=== PATIENT | female | born 1990 | race American Indian/Alaskan Native ===

== ENCOUNTER 2016-10-21 21:37 | Emergency (ER) | payer MEDICAID ==
[2016-10-21 23:09] LABS: Alanine Aminotransferase 9 units/L (7-56); Albumin 3.9 g/dL (3.9-5); Alkaline Phosphatase 56 units/L (35-129); Anion Gap 18 mmol/L; Blood Urea Nitrogen 14 mg/dL (7-17); Carbon Dioxide 24 mmol/L (22-30); Glucose 91 mg/dL (65-100); Lipase 18 units/L (13-60); Potassium 3.6 mmol/L (3.6-5.0); Sodium 139 mmol/L (137-145); Total Protein 7.7 g/dL (6.3-8.2)
[2016-10-21 23:17] LABS: Basophils % (Auto) 0.1 % (0.0-1.8); Eosinophils % (Auto) 2.1 % (0.0-4.3); Hematocrit 31.4 % (30.3-42.9); Hemoglobin 9.7 gm/dl (10.1-14.3); Mean Corpuscular HGB Conc 31 % (30-34); Mean Corpuscular Hemoglobin 22 pg (28-32); Mean Corpuscular Volume 71 fl (79-97); Platelet Count 247 K/mm3 (140-440); Red Blood Count 4.44 M/mm3 (3.65-5.03); Red Cell Distribution Width 17.9 % (13.2-15.2); White Blood Count 6.8 K/mm3 (4.5-11.0)
--- NOTE | 2016-10-21 23:57 | Ultrasound Report ---
FINAL REPORT EXAM: US OB TRANSVAGINAL HISTORY: pain, vaginal bleed COMPARISONS: None. FINDINGS: Transvaginal grayscale and color Doppler ultrasound evaluation of the pelvis No intrauterine . Mildly heterogeneous thickening of the endometrium up to 19 millimeters. Right adnexal thick walled cystic structure measures up to 16 millimeters. There is peripheral flow on color Doppler. Overall right ovarian measurements are 2.9 x 1.5 x 1.4 cm. Left ovary demonstrates normal size and echotexture measuring 2.3 x 1.3 x 1.4 cm. IMPRESSION: No intrauterine . Right adnexal thick walled cystic structure measuring up to 16 millimeters may represent ectopic or corpus luteum cyst. Short interval clinical and sonographic follow-up are recommended.
--- NOTE | 2016-10-22 | Ultrasound Report ---
FINAL REPORT EXAM: US OB \T\lt; = 14 WEEKS FETUS HISTORY: pain, vaginal bleed COMPARISONS: Transvaginal ultrasound of the same date FINDINGS: Transvaginal grayscale and color Doppler ultrasound evaluation of the pelvis No intrauterine identified. Mildly heterogeneous thickening of the endometrium up to 19 millimeters is better demonstrated on transvaginal imaging of the same date. The right and left ovary are not well visualized on transabdominal imaging. IMPRESSION: No intrauterine . Ovaries are not well visualized. Please see transvaginal ultrasound of the same date. In the setting of a positive test, differential diagnosis includes ectopic/ of unknown location. Gynecology consultation is recommended.
[2016-10-22 00:40] LABS: Bacteria,Urine 3+ /HPF (Negative); Bilirubin,Urine NEG (Negative); Blood,Urine LG (Negative); Ketones,Urine 20 mg/dL (Negative); Leukocyte Esterase,Urine SM (Negative); Mucus,Urine 2+ /HPF; Nitrite,Urine NEG (Negative)
[2016-10-22 02:07] VITALS: BP 133/77
== END 2016-10-21 23:42 | disposition left against medical advice (07) ==
LOC: ED 21:37
DX: O46.92 Antepartum hemorrhage, unspecified, second trimester (principal); Z3A.16 16 weeks gestation of pregnancy; Z53.21 Procedure and treatment not carried out due to patient leaving prior to being seen by health care provider
CPT/HCPCS: 36415; 76801; 76817; 80053; 81001; 83690; 84702; 85025

== ENCOUNTER 2018-09-10 08:33 | Inpatient (IN) | payer MEDICAID ==
[2018-09-10] MEDS ORDERED: MINERAL OIL PO PRN (09:32)
[2018-09-10] MEDS ORDERED: ZOFRAN IV PRN (09:32)
[2018-09-10] MEDS ORDERED: BRETHINE SUB-Q PRN (09:32)
[2018-09-10] MEDS ORDERED: XYLOCAINE 2% INFILTRATI ONE (09:32)
[2018-09-10] MEDS ORDERED: PITOCin/NS 30 UNIT/500ML 30 UNITS/500 ML BAG IV SCH (09:32)
--- NOTE | 2018-09-10 09:35 | History and Physical Report ---
History of Present Illness Date of examination: 09/10/18 (IOL) Date of admission: 09/10/18 08:33 History of present illness: EDC Confirmation: 09/22/2018 Gestational Age: 6 2/7 weeks Past History : 5 Term Births: 2 Premature Births: 0 Living Children: 2 Para: 2 Mult. Births: 0 Prev : 0 Prev. attempt? 0 Aborta: 2 Elect. Ab: 1 Spont. Ab: 0 Ectopics: 1 # 1 Delivery date: 07/25/2006 Weeks Gestation: 39 labor: no Delivery type: Hours of labor: 8 Anesthesia type: IV Delivery location: [facility] Sex: Female weight: 6-5 Name: Solis # 2 Delivery date: 12/03/2010 Weeks Gestation: 41 labor: no Delivery type: Hours of labor: 17 Anesthesia type: IV Delivery location: [facility] Sex: Male weight: 8-15 Name: Devontristan Comments: induction postdate # 3 Delivery date: 12/2016 Delivery type: ectopic [place] [facility] [place] Comments: M[place] # 4 Delivery date: 05/10/2017 Delivery type: EAB Past Medical History: Reviewed history from 04/24/2017 and no changes required: Negative Past Medical History Past Surgical History: Reviewed history from 04/24/2017 and no changes required: 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 of genital herpes: no Partner hx. of genital herpes: no Rash, Viral, or Febrile illness since last LMP? no Varicella/Chicken Pox Status: Previous Disease TB Risk: no Genetic History Congenital Heart Defect: Mom: no Dad: no Linus Disease: Mom: no Dad: no Thalassemia Mom: no Dad: no Neural Tube Defect Mom: no Dad: no Down's Syndrome Mom: no Dad: no Uche-Sachs Mom: no Dad: no Sickle Cell Disease/Trait Mom: no Dad: no Hemophilia Mom: no Dad: no Muscular Dystrophy Mom: no Dad: no Cystic Fibrosis Mom: no Dad: no Donaldson Chorea Mom: no Dad: no Mental Retardation Mom: no Dad: no Fragile X Mom: no Dad: no Other Genetic/Chromosomal Disorder Mom: no Dad: no Child w/other defect Mom: no Dad: no Enviromental Exposures Xray Exposure: no Medication, drug, or alcohol use since LMP: no Chemical/Other Exposure: no Exposure to Cat Liter: no Hx of Parvovirus (Fifth Disease): no Occupational Exposure to Children: none Current Allergies (reviewed today): No known allergies Past History - Obstetrical History Expected Date of Delivery: 09/22/18 Actual Gestation: 38 Week(s) 2 Day(s) : 5 Para: 2 Hx # Term Pregnancies: 2 Number of Pregnancies: 0 Spontaneous Abortions: 0 Induced : 2 (1 EAB; 1 ectopic) Number of Living Children: 2 Medications and Allergies Allergies Allergy/AdvReac Type Severity Reaction Status Date / Time No Known Allergies Allergy Verified 09/10/18 09:20 Home Medications Medication Instructions Recorded Confirmed Last Taken Type No Known Home Medications [No 09/02/18 09/02/18 Unknown History Reported Home Medications] - Vital Signs Vital signs: Vital Signs Pulse BP 90 130/67 09/10/18 09:18 09/10/18 09:18 Temp Pulse Resp BP Pulse Ox 90 130/67 09/10/18 09:18 09/10/18 09:18 - Physical Exam Breasts: Positive: deferred Cardiovascular: Regular rate, Normal S1, Normal S2 Lungs: Positive: Clear to auscultation Abdomen: Positive: normal appearance, soft, normal bowel sounds. Negative: distention, tenderness Vulva: both: normal Vagina: Positive: normal moisture. Negative: discharge Cervix: Negative: lesion, discharge Uterus: Positive: normal size, normal contour Adnexa: both: normal Anus/Rectum: Positive: normal perianal skin, heme negative. Negative: rectal mass, hemorrhoids Extremities: Positive: edema Deep Tendon Reflex Grade: Normal +2 - Obstetrical FHR: category 1 Uterine Contraction Monitor Mode: External Cervical Dilatation: 0.5 (per RN) Uterine Contraction Pattern: Irregular Uterine Tone Measurement Phase: Resting Uterine Contraction Intensity: Mild Results Result Diagrams: 09/10/18 Unknown All other labs normal.Patient: GBS POSITIVE Order Note: Clinical Information: SRC:UR HBsAg Screen Negative Negative *1 RPR Non Reactive Non Reactive *2 Rubella Antibodies, IgG 3.84 index Immune >0.99 *3 Non-immune <0.90 Equivocal 0.90 - 0.99 Immune >0.99 ABO Grouping A *4 Rh Factor Positive *5 Please note: Prior records for this patient's ABO / Rh type are not available for additional verification. Antibody Screen Negative Negative *6 WBC 6.2 x10E3/uL 3.4-10.8 *7 RBC 4.66 x10E6/uL 3.77-5.28 *8 Hemoglobin [L] 9.8 g/dL 11.1-15.9 *9 Hematocrit [L] 32.6 % 34.0-46.6 *10 MCV [L] 70 fL 79-97 *11 MCH [L] 21.0 pg 26.6-33.0 *12 MCHC [L] 30.1 g/dL 31.5-35.7 *13 RDW [H] 17.2 % 12.3-15.4 *14 Platelets 305 x10E3/uL 150-379 *15 Neutrophils 65 % Not Estab. *16 Lymphs 26 % Not Estab. *17 Monocytes 7 % Not Estab. *18 Eos 2 % Not Estab. *19 Basos 0 % Not Estab. *20 ! Immature Cells <No Reported Value> *21 Neutrophils (Absolute) 4.1 x10E3/uL 1.4-7.0 *22 Lymphs (Absolute) 1.6 x10E3/uL 0.7-3.1 *23 Monocytes(Absolute) 0.4 x10E3/uL 0.1-0.9 *24 Eos (Absolute) 0.1 x10E3/uL 0.0-0.4 *25 Baso (Absolute) 0.0 x10E3/uL 0.0-0.2 *26 ! Immature Granulocytes 0 % Not Estab. *27 ! Immature Grans (Abs) 0.0 x10E3/uL 0.0-0.1 *28 ! NRBC <No Reported Value> *29 Hematology Comments: <No Reported Value> *30 Tests: (2) Cystic Fibrosis Profile (450307) ! CF, Screen Comment: *31 RESULTS: Negative for 32 mutations analyzed Tests: (3) HB Solu + Rflx Fra (318997) Hemoglobin (Hgb) Solubility Negative Negative *33 Tests: (4) Panel 125889 (767428) HIV Screen 4th Generation wRfx Non Reactive Non Reactive *34 Tests: (5) HCV Ab w/Rflx to Verification (710274) ! HCV Ab <0.1 s/co ratio 0.0-0.9 *35 Tests: (6) Comment: (475424) ! Comment: SPRCS *36 Non reactive HCV antibody screen is consistent with no HCV infection, unless recent infection is suspected or other evidence exists to indicate HCV infection. Tests: (7) Urine Culture, Routine (622889) Urine Culture, Routine Final report *37 Tests: (8) Result ([id number]) ! Result 1 MUG *38 Mixed urogenital kelly 50,000-100,000 colony forming units per mL Assessment and Plan 27yo @ 38 weeks for IOL as per AMFM recommendation due to maternal CHtn. GBS + All orders in EMR. aware of admission.
[2018-09-10] MEDS ORDERED: PITOCin/NS 20 UNIT/1000ML DRIP 20 UNITS/1,000 ML BAG IV SCH (10:00)
[2018-09-10] MEDS ORDERED: AMPICILLIN/NS 2 GM/100 ML 2 GM/100 ML BAG IV ONE (10:00)
[2018-09-10] MEDS: LACTATED RINGERS 1,000 ML IV SCH ×2 (10:13→20:18)
[2018-09-10 11:21] LABS: Hematocrit 27.4 % (30.3-42.9); Hemoglobin 8.1 gm/dl (10.1-14.3); Mean Corpuscular HGB Conc 30 % (30-34); Mean Corpuscular Volume 66 fl (79-97); Platelet Count 214 K/mm3 (140-440); Red Blood Count 4.16 M/mm3 (3.65-5.03); Red Cell Distribution Width 21.2 % (13.2-15.2)
[2018-09-10] MEDS: SUBLIMAZE IV PRN (15:10)
[2018-09-10] MEDS ORDERED: AMBIEN PO PRN (16:47)
--- NOTE | 2018-09-10 16:50 | Event Note ---
Date: 09/10/18 (pit off) Discussed POC Pitocin off Regular diet ordered PM care Place Cervidil @ 1900 All questions addressed.
[2018-09-10] MEDS ORDERED: CERVIDIL VG ONE (19:00)
--- NOTE | 2018-09-11 07:32 | Progress Note ---
Assessment and Plan 27y/o @ 38+3 weeks, cervidil removed. SVE /-2. CAT 1 FHT. Will allow OOB for AM care and meal. Orders to start pitocin @ 0830. reviewed with RN. All questions addressed. - Patient Problems (1) 38 weeks gestation of Current Visit: Yes Status: Acute (2) Group B Streptococcus carrier state affecting Current Visit: Yes Status: Acute Plan to address problem: Amp q4h until delivery (3) Hypertension affecting Current Visit: Yes Status: Acute Qualifiers: Trimester: third trimester Qualified Code(s): O16.3 - Unspecified maternal hypertension, third trimester Plan to address problem: b/p normotensive at this time Subjective - Subjective Date of service: 09/11/18 Principal diagnosis: IUP @ 38+3 weeks, IOL for CHTN Patient reports: movement normal, no new complaints, no loss of fluid, no vaginal bleeding, no contractions Objective - Vital Signs Vital Signs: Vital Signs - 12hr 09/10/18 09/11/18 09/11/18 20:19 07:11 07:20 Temperature 98.4 F Pulse Rate 91 H 96 H 85 Respiratory 20 Rate Blood Pressure 132/59 144/60 127/59 Blood Pressure 127/59 [Right] - Exam Breasts: normal Cardiovascular: Regular rate Lungs: Clear to auscultation, Normal air movement Abdomen: Present: normal appearance, soft Vulva: both: normal Uterus: Present: normal FHR: category 1 Uterine Contraction Monitor Mode: External Cervical Dilatation: 1 Cervical Effacement Percentage: 40 station: -2 Uterine Contraction Pattern: Absent Uterine Tone Measurement Phase: Resting Extremities: normal Deep Tendon Reflex Grade: Normal +2 - Labs Labs: Abnormal Labs 09/10/18 Unknown Hgb 8.1 L Hct 27.4 L MCV 66 L MCH 20 L RDW 21.2 H Laboratory Results - last 24 hr 09/10/18 09/10/18 09/10/18 Unknown Unknown Unknown WBC 7.5 RBC 4.16 Hgb 8.1 L Hct 27.4 L MCV 66 L MCH 20 L MCHC 30 RDW 21.2 H Plt Count 214 RPR Nonreactive Blood Type A POSITIVE Antibody Screen Negative
[2018-09-11] MEDS: PITOCin/NS 30 UNIT/500ML 30 UNITS/500 ML BAG IV SCH ×4 (08:49→11:07)
[2018-09-11] MEDS: AMPICILLIN/NS 1 GM/50 ML 1 GM/50 ML BAG IV SCH ×2 (09:39→13:36)
[2018-09-11] MEDS: SUBLIMAZE IV PRN ×2 (10:25→14:49)
--- NOTE | 2018-09-11 13:14 | Event Note ---
Date: 09/11/18 Resting in bed, VSS. Serial induction of labor explained. Plan of care discussed, questions were encouraged and answered. She voiced understanding and agrees with plan of care
[2018-09-11] MEDS: LACTATED RINGERS 1,000 ML IV SCH (13:29)
--- NOTE | 2018-09-11 16:14 | Progress Note ---
Assessment and Plan Patient resting, no signs of distress or pain. SVE unchanged. VSSAF. FHT cat 1. discussed options with patient, will monitor x 20 minutes then allow OOB for ambulation and regular meal. Plan to redo cervidil tonight. Pt verbalizes agreement and understanding. All questions addressed. - Patient Problems (1) 38 weeks gestation of Current Visit: Yes Status: Acute (2) Group B Streptococcus carrier state affecting Current Visit: Yes Status: Acute (3) Hypertension affecting Current Visit: Yes Status: Acute Qualifiers: Trimester: third trimester Qualified Code(s): O16.3 - Unspecified maternal hypertension, third trimester Subjective - Subjective Date of service: 09/11/18 Principal diagnosis: IUP @ 38+3 weeks, IOL for CHTN Patient reports: movement normal, contractions (irregular ctx, pt does not appear to be in distress), no new complaints, no loss of fluid, no vaginal bleeding Objective - Vital Signs Vital Signs: Vital Signs - 12hr 09/11/18 09/11/18 09/11/18 07:11 07:20 08:25 Temperature 98.4 F Pulse Rate 96 H 85 113 H Respiratory 20 Rate Blood Pressure 144/60 127/59 115/58 Blood Pressure 127/59 [Right] 09/11/18 09/11/18 09/11/18 08:50 08:52 09:24 Temperature 98.7 F Pulse Rate 110 H 103 H Respiratory Rate Blood Pressure 121/69 126/68 Blood Pressure [Right] 09/11/18 09/11/18 09/11/18 09:53 10:24 10:25 Temperature Pulse Rate 103 H 90 Respiratory 20 Rate Blood Pressure 117/60 122/59 Blood Pressure [Right] 09/11/18 09/11/18 09/11/18 10:54 11:24 11:53 Temperature Pulse Rate 77 87 81 Respiratory Rate Blood Pressure 113/59 119/68 123/61 Blood Pressure [Right] 09/11/18 09/11/18 09/11/18 12:00 12:23 12:53 Temperature 97.9 F Pulse Rate 81 84 95 H Respiratory 18 Rate Blood Pressure 98/53 115/69 Blood Pressure [Right] 09/11/18 09/11/18 09/11/18 13:24 13:55 14:38 Temperature Pulse Rate 90 83 86 Respiratory Rate Blood Pressure 114/56 121/62 125/60 Blood Pressure [Right] 09/11/18 09/11/18 09/11/18 14:49 14:54 15:19 Temperature Pulse Rate 80 Respiratory 18 18 Rate Blood Pressure 118/68 Blood Pressure [Right] 09/11/18 09/11/18 15:24 15:53 Temperature Pulse Rate 81 89 Respiratory Rate Blood Pressure 118/52 119/69 Blood Pressure [Right] - Exam Breasts: normal Cardiovascular: Regular rate Lungs: Clear to auscultation, Normal air movement Abdomen: Present: normal appearance, soft Vulva: both: normal Uterus: Present: normal FHR: category 1 Uterine Contraction Monitor Mode: External Cervical Dilatation: 1 Cervical Effacement Percentage: 40 station: -3 Uterine Contraction Frequency (min): 2-4 Uterine Contraction Duration: 60 Uterine Contraction Pattern: Regular Uterine Tone Measurement Phase: Resting Uterine Contraction Intensity: Mild Extremities: normal Deep Tendon Reflex Grade: Normal +2 - Labs Labs: Abnormal Labs 09/10/18 Unknown Hgb 8.1 L Hct 27.4 L MCV 66 L MCH 20 L RDW 21.2 H Laboratory Results - last 24 hr 09/10/18 Unknown RPR Nonreactive
[2018-09-11] MEDS ORDERED: CERVIDIL VG ONE ×4 (17:00→20:19)
--- NOTE | 2018-09-12 07:49 | Progress Note ---
Assessment and Plan 38w 4d Day 3 IOL for CHTN per AMFM. Patient resting in bed, reports comfortable. States that she had occasional contractions/cramping throughout the night. No contractions noted on TOCO. Abdomen palpates soft, nontender all over. Category 1 tracing at this time. Cervidil remains in place at this time, due to be discontinued within the hour. Will reevaluate SVE to determine POC. Hopes to be able to SROM to place internal monitoring to manage pitocin today. VSSAF. Patient denies any VARGHESE, visual disturbances, RUQ pain. Assessment WNL. Will consult Dr. Vanessa with plans. Continue to monitor at this time. Subjective - Subjective Date of service: 09/12/18 Principal diagnosis: IUP @ 38+4 weeks, IOL for CHTN Patient reports: new complaints (mild cramping throughout the night), movement normal, contractions (occasional), no loss of fluid, no vaginal bleeding Objective - Vital Signs Vital Signs: Vital Signs - 12hr 09/11/18 09/11/18 09/11/18 20:34 22:29 22:39 Pulse Rate 93 H 88 89 Blood Pressure 119/64 115/59 O2 Sat by Pulse 99 Oximetry 09/11/18 09/11/18 09/11/18 22:44 22:49 22:54 Pulse Rate 79 82 79 Blood Pressure O2 Sat by Pulse 99 99 98 Oximetry 09/11/18 09/11/18 09/11/18 22:59 23:04 23:09 Pulse Rate 80 91 H 87 Blood Pressure O2 Sat by Pulse 100 99 99 Oximetry 09/11/18 09/11/18 09/11/18 23:14 23:19 23:24 Pulse Rate 84 83 91 H Blood Pressure O2 Sat by Pulse 99 98 98 Oximetry 09/11/18 09/11/18 09/11/18 23:29 23:34 23:39 Pulse Rate 94 H 97 H 94 H Blood Pressure O2 Sat by Pulse 98 98 97 Oximetry 09/11/18 09/11/18 09/11/18 23:44 23:49 23:54 Pulse Rate 96 H 104 H 98 H Blood Pressure O2 Sat by Pulse 97 97 98 Oximetry 09/11/18 23:59 Pulse Rate 90 Blood Pressure O2 Sat by Pulse 98 Oximetry - Exam Breasts: normal Cardiovascular: Regular rate, Normal S1, Normal S2 Lungs: Clear to auscultation Abdomen: Present: normal appearance, soft. Absent: distention, tenderness Vulva: both: normal Uterus: Present: normal FHR: auscultation normal, category 1 Uterine Contraction Monitor Mode: External Uterine Contraction Pattern: Absent Uterine Tone Measurement Phase: Resting (soft) Extremities: normal Deep Tendon Reflex Grade: Normal +2 - Labs Labs: Abnormal Labs 09/10/18 Unknown Hgb 8.1 L Hct 27.4 L MCV 66 L MCH 20 L RDW 21.2 H
--- NOTE | 2018-09-12 09:18 | Event Note ---
Date: 09/12/18 Cervidil removed. SVW /-2. SROM performed with patient's permission, clear fluid. IUPC placed without difficulty. FHTs continue to trace appropriately via external US. Will begin pitocin at 0930. RN notified to resume treatment for +GBS once pitocin started.
[2018-09-12] MEDS ORDERED: PITOCin/NS 30 UNIT/500ML 30 UNITS/500 ML BAG IV SCH (09:30)
[2018-09-12] MEDS: AMPICILLIN/NS 1 GM/50 ML 1 GM/50 ML BAG IV SCH ×2 (12:00→16:40)
[2018-09-12] MEDS: SUBLIMAZE IV PRN ×2 (12:30→14:42)
--- NOTE | 2018-09-12 13:17 | Event Note ---
Date: 09/12/18 Patient reports continued pain from contractions despite administration of IV pain medications. SVE is no change from prior exam. Pitocin currently infusing at 8mu/min. Contractions palpating mild. Patient reports she would like a c/s. She states "I'm tired of the induction now". Informed patient that her course of labor is not abnormal for at induction at 38 weeks, she and baby remain in stable condition, and from our standpoint, c/s is not warranted at this time. Offered patient epidural at this time to help relieve pain and patient agrees. She states she will reconsider her desire for c/s after epidural placement. Dr. Vanessa notified of patient requests and will speak with her if still requesting c/s after epidural. Pt agrees to continue pitocin at this time.
[2018-09-12] MEDS ORDERED: NARCAN 2 MG/2 ML IV PRN (15:56)
[2018-09-12] MEDS ORDERED: fentaNYL-BUPIV 2 MCG/ML-0.125% 200 MCG/100 ML BAG EPIDURAL SCH (16:00)
--- NOTE | 2018-09-12 16:00 | Anesthesia Consultation ---
Anesthesia Consult and Med Hx Date of service: 09/12/18 - Airway Anesthetic Teeth Evaluation: Good ROM Head & Neck: Adequate Mental/Hyoid Distance: Adequate Mallampati Class: Class II Intubation Access Assessment: Probably Good - Pulmonary Exam CTA: Yes - Cardiac Exam Cardiac Exam: RRR - Pre-Operative Health Status ASA Pre-Surgery Classification: ASA3 Proposed Anesthetic Plan: Epidural - Pulmonary Hx Smoking: No Hx Asthma: No Hx Respiratory Symptoms: No SOB: No COPD: No Home Oxygen Therapy: No Hx Pneumonia: No Hx Sleep Apnea: No - Cardiovascular System Hx Hypertension: No Hx Coronary Artery Disease: No Hx Heart Attack/AMI: No Hx Angina: No Hx Percutaneous Transluminal Coronary Angioplasty (PTCA): No Hx Cardia Arrhythmia: No Hx Pacemaker: No Hx Internal Defibrillator: No Hx Valvular Heart Disease: No Hx Heart Murmur: No Hx Peripheral Vascular Disease: No - Central Nervous System Hx Neuromuscular Disorder: No Hx Seizures: No CVA: No Hx Back Pain: Yes Hx Psychiatric Problems: No - Gastrointestinal Hx Ulcer: No Hx Gastroesophageal Reflux Disease: Yes - Endocrine Hx Renal Disease: No Hx End Stage Renal Disease: No Hx Cirrhosis: No Hx Liver Disease: No Hx Insulin Dependent Diabetes: No Hx Non-Insulin Dependent Diabetes: No Hx Thyroid Disease: No Hx Hypothyroidism: No Hx Hyperthyroidism: No - Hematic Hx Anemia: No Hx Sickle Cell Disease: No - Other Systems Hx Alcohol Use: No Hx Substance Use: No Hx Cancer: No Hx Obesity: Yes
--- NOTE | 2018-09-12 16:37 | Anesthesia Consultation ---
Anesthesia Consult and Med Hx Date of service: 09/12/18 - Airway Anesthetic Teeth Evaluation: Good ROM Head & Neck: Adequate Mental/Hyoid Distance: Adequate Mallampati Class: Class III Intubation Access Assessment: Probably Good - Pulmonary Exam CTA: Yes - Cardiac Exam Cardiac Exam: RRR - Pre-Operative Health Status ASA Pre-Surgery Classification: ASA3 Proposed Anesthetic Plan: Epidural - Pulmonary Hx Smoking: No Hx Asthma: No Hx Respiratory Symptoms: No SOB: No COPD: No Home Oxygen Therapy: No Hx Pneumonia: No Hx Sleep Apnea: No - Cardiovascular System Hx Hypertension: Yes Hx Coronary Artery Disease: No Hx Heart Attack/AMI: No Hx Angina: No Hx Percutaneous Transluminal Coronary Angioplasty (PTCA): No Hx Cardia Arrhythmia: No Hx Pacemaker: No Hx Internal Defibrillator: No Hx Valvular Heart Disease: No Hx Heart Murmur: No Hx Peripheral Vascular Disease: No - Central Nervous System Hx Neuromuscular Disorder: No Hx Seizures: No CVA: No Hx Back Pain: Yes Hx Psychiatric Problems: No - Gastrointestinal Hx Ulcer: No Hx Gastroesophageal Reflux Disease: Yes - Endocrine Hx Renal Disease: No Hx End Stage Renal Disease: No Hx Cirrhosis: No Hx Liver Disease: No Hx Insulin Dependent Diabetes: No Hx Non-Insulin Dependent Diabetes: No Hx Thyroid Disease: No Hx Hypothyroidism: No Hx Hyperthyroidism: No - Hematic Hx Anemia: No Hx Sickle Cell Disease: No - Other Systems Hx Alcohol Use: No Hx Substance Use: No Hx Cancer: No Hx Obesity: Yes
--- NOTE | 2018-09-12 16:37 | Anesthesia Day of Surgery ---
Anesthesia Day of Surgery - Day of Surgery Patient Examined: Yes Patient H&P Reviewed: Yes Patient is NPO: Yes Beta Blockers: No Cardiac Clearance: No Pulmonary Clearance: No Trip's Test: N/A
--- NOTE | 2018-09-12 16:38 | Post Anesthesia Evaluation ---
- Post Anesthesia Evaluation Patient Participated: Yes Airway Patent: Yes Stable Respiratory Function: Yes Nausea/Vomiting: No Temp > 96.8F: Yes Pain Manageable: Yes Adequeate Hydration: Yes Anesthesia Complications: No Block Receding Appropriately: Yes Patient on Ventilator: No
--- NOTE | 2018-09-12 17:08 | Event Note ---
Date: 09/12/18 Patient comfortable in bed s/p epidural placement. SVE 5.5/80/-2, continued leaking of clear fluid. Patient elects to continue progressing towards vaginal delivery. She reports "I'm comfortable, I do not want a c section anymore". Category 1 tracing at this time. Regular contractions noted via TOCO, palpating moderate. Will continue pitocin administration as ordered. Dr. Vanessa notified of update in POC. Will continue to monitor, anticipate .
[2018-09-12] MEDS ORDERED: ZOFRAN IV PRN (19:33)
[2018-09-12] MEDS ORDERED: LANSINOH TP PRN (19:33)
[2018-09-12] MEDS ORDERED: DULCOLAX PR PRN (19:33)
[2018-09-12] MEDS ORDERED: TUCKS PAD TP PRN (19:33)
[2018-09-12] MEDS ORDERED: MILK OF MAGNESIA PO PRN (19:33)
[2018-09-12] MEDS ORDERED: BENADRYL PO PRN (19:33)
[2018-09-12] MEDS ORDERED: PHENERGAN PO PRN (19:33)
--- NOTE | 2018-09-12 19:45 | Procedure Note ---
OB Delivery Note - Delivery Date of Delivery: 09/12/18 Estimated blood loss: 300cc - Vaginal Delivery presentation: vertex Delivery induction: oxytocin Delivery monitor: external FHT, internal uterine Route of delivery: Delivery placenta: spontaneous Episiotomy: none Delivery laceration: none Anesthesia: epidural Delivery comments: of viable female infant over intact perineum. placed on mother's abdomen, skin to skin, vigorous cry with drying and stimulation. Cord clamped x2 upon cessation of pulsation and cut by FOC. Spontaneous delivery of placenta, complete and intact. Pit to IV. No lacerations to repair. Fundus is firm, ML, hemostatic. EBL 300. Mother reports being comfortable. Infant apgars 8/9, wt 6#5. and mother remain LDR stable condition. - Infant A at 1 minute: 8 at 5 minutes: 9 Infant Gender: Female (6#5)
[2018-09-12] MEDS ORDERED: SODIUM CHLORIDE FLUSH SYRINGE 10 ML IV SCH (20:00)
[2018-09-12] MEDS: IBUPROFEN PO SCH (20:39)
[2018-09-12] MEDS ORDERED: PITOCin/NS 20 UNIT/1000ML DRIP 20 UNITS/1,000 ML BAG IV SCH (21:00)
[2018-09-12] MEDS: TYLENOL PO PRN (22:05)
[2018-09-12] MEDS: LACTATED RINGERS 1,000 ML IV SCH (22:15)
[2018-09-13] MEDS: TYLENOL PO PRN ×2 (04:05→11:10)
[2018-09-13] MEDS ORDERED: BOOSTRIX IM ONE (06:00)
[2018-09-13] MEDS: IBUPROFEN PO SCH ×3 (06:09→18:53)
[2018-09-13 07:52] LABS: Hematocrit 23.1 % (30.3-42.9); Hemoglobin 6.9 gm/dl (10.1-14.3)
[2018-09-13] MEDS: PRENATAL VITAMIN PO SCH (09:43)
--- NOTE | 2018-09-13 10:32 | Discharge Summary ---
Providers - Providers Date of Admission: 09/10/18 08:33 Date of discharge: 09/13/18 Attending physician: TERESA ALEX 09/12/18 19:34 Consult to [facility] [CONS] Routine Reason For Exam: assistance with , SNS Primary care physician: TERESA ALEX Hospitalization Reason for admission: induction of labor (maternal CHTN IOL per recommendation [facility]) Delivery: Episiotomy: none Laceration: none Incision: normal Other procedures: none complications: none Discharge diagnosis: IUP at term delivered [place] baby: female Hospital course: Uncomplicated following IOL. Pt resting quietly in bed. No visible signs of distress. NB in sleeping in crib. VSS. FF at umb. Lochia small. Perineum intact. H/H 11/04. Chronic anemia. Drop r/t blood loss in delivery. Asymptomatic of anemia. Doing well s/p vaginal delivery. P: Discharge today w/ instructions, possibly tomorrow d/t +GBS. RTO 4wks. Condition at discharge: Good Disposition: DC-01 TO HOME OR SELFCARE - Discharge Diagnoses (1) Normal spontaneous vaginal delivery Status: Acute Comment: RTO 4wks PPC Plan - Provider Discharge Summary Activity: routine, no sex for 6 weeks, no heavy lifting 4 weeks, no strenuous exercise Diet: other (Limit salt intake) Instructions: routine Additional instructions: [] Smoking cessation referral if applicable(refer to patient education folder for contact #) [] Refer to [facility]'s [facility] Booklet Call your doctor immediately for: * Fever > 100.5 * Heavy vaginal bleeding ( >1 pad per hour) * Severe persistent headache * Shortness of breath * Reddened, hot, painful area to leg or breast * Drainage or odor from incision. * Keep incision clean and dry at all times and follow doctor's instructions regarding bathing/showering - Follow up plan Follow up: TERESA ALEX MD [Primary Care Provider] - 10/11/18 (Congradulations! Please call [phone] to schedule your visit in four weeks. Call with any headache unrelieved with Tylenol, blurred vision, or chest pain. We recommend blood pressure check once a day. Please call if blood pressure is greater than 140/90. Motrin/Ibuprofen for pain or cramping. Call with concerns. )
[2018-09-14] MEDS: IBUPROFEN PO SCH ×2 (01:29→06:47)
[2018-09-14] MEDS: TYLENOL PO PRN ×2 (01:29→06:47)
[2018-09-14 08:59] VITALS: BP 98/42
[2018-09-14] MEDS: PRENATAL VITAMIN PO SCH (09:42)
== END 2018-09-14 13:10 | disposition home or self-care (01) | DRG 774 ==
LOC: LD 08:33 → OB 09-12 21:27
PROVIDERS: ADMIT Obstetrics & Gynecology; ATTEND Obstetrics & Gynecology
PROC: 3E0P7VZ Introduction of Hormone into Female Reproductive, Via Natural or Artificial Opening (ICD-10-PCS; 2018-09-10)
PROC: 10E0XZZ Delivery of Products of Conception, External Approach (ICD-10-PCS; principal; 2018-09-12)
PROC: 10H07YZ Insertion of Other Device into Products of Conception, Via Natural or Artificial Opening (ICD-10-PCS; 2018-09-12)
PROC: 3E033VJ Introduction of Other Hormone into Peripheral Vein, Percutaneous Approach (ICD-10-PCS; 2018-09-12)
PROC: 3E0R3BZ Introduction of Anesthetic Agent into Spinal Canal, Percutaneous Approach (ICD-10-PCS; 2018-09-12)
PROC: 00HU33Z Insertion of Infusion Device into Spinal Canal, Percutaneous Approach (ICD-10-PCS; 2018-09-12)
DX: O10.92 Unspecified pre-existing hypertension complicating childbirth (principal); O99.824 Streptococcus B carrier state complicating childbirth; O99.62 Diseases of the digestive system complicating childbirth; O99.214 Obesity complicating childbirth; O99.02 Anemia complicating childbirth; K21.9 Gastro-esophageal reflux disease without esophagitis; D64.9 Anemia, unspecified; E66.9 Obesity, unspecified; Z3A.38 38 weeks gestation of pregnancy; Z37.0 Single live birth
CPT/HCPCS: 36415; 59200; 85014; 85018; 85027; 86592; 86850; 86900; 86901; 88307; G0378; J0290; J2405; J2590; J3010; J7120